=== PATIENT | male | born 1930 | race Caucasian/White ===

== ENCOUNTER 2017-08-30 19:07 | Inpatient (IN) | payer MEDICARE ==
[~2017-08-30] VITALS: Ht 180.3 cm; Wt 136.8 kg
--- NOTE | ~2017-08-30 | EC ---
PATIENT:GEORGI CROUCH DATE OF SERVICE: 09/01/17 SEX: M MEDICAL RECORD: [id number] DATE OF : 30 LOCATION:[facility] [place] AGE OF PATIENT: 86 ADMISSION DATE: 09/01/17 REFERRING PHYSICIAN: INTERPRETING PHYSICIAN: HAZEL LOVE MD ECHOCARDIOGRAM REPORT ECHO CHARGES 4 ECHO COMPLETE CLINICAL DIAGNOSIS: CHF ECHOCARDIOGRAPHIC MEASUREMENTS (adult normal given) AC root (d.<3.7cm) 3.7 cm LV Septum d (<1.2 cm> 1.4 cm Valve Excursion 2.6 cm LV Septum (systole) 1.8 cm Left Atria (s.<4.0cm> 5.5 cm LVPW d(<1.2cm) 1.3 cm RV (d.<2.3cm) 3.3 cm LVPW (sytole) 2.0 cm LV diastole(<5.6CM) 5.3 cm MV E-F(>70mm/sec) cm LV systole 3.1 cm LVOT Diameter 2.2 cm MV exc.(>10mm) cm Est.ejection fraction (50-75%) % Pericardial Effusion N DOPPLER: LVIT cm/sec A cm/sec E 143 cm/sec LA cm/sec RVSP 68.0 mmHg LVOT 114 cm/sec AOP1/2T m/s Asc. Ao 160 cm/sec RVOT 81.0 cm/sec RA cm/sec PA 91.0 cm/sec AV Gradient Peak 10.3 mmHg AV Mean 4.5 mmHg AV Area 2.6 cm MV Gradient Peak 8.0 mmHg MV Mean 2.5 mmHg MV Area cm COMMENTS: Crab Meat Processor: Mak FRANCIS DALLAS Learning And Development Administrator: 4 Dr. Love TAPE# PACS DATE OF SERVICE: 09/01/2017 PROCEDURE: Transthoracic echocardiogram. FINDINGS: 1. Left ventricle shows evidence of left ventricular hypertrophy with inflow characteristics. They were unable to be measured because of atrial fibrillation. 2. The left ventricle was difficult to visualize throughout the study and contrast may be very helpful here, but overall it appears that the left ECHOCARDIOGRAM REPORT [id number] GEORGI CROUCH ventricular function is normal to hyperdynamic, ejection fraction 55% to 60%. 3. The right ventricle is dilated, also with good function. 4. There is moderate mitral regurgitation and moderate tricuspid regurgitation. The RVSP is elevated significantly at 70 mmHg indicating moderate severe pulmonary hypertension. 5. The right and left atrium were severely dilated. 6. The pericardium is normal. CONCLUSIONS: This is difficult to visualize echocardiogram with what appears to be left ventricular hypertrophy and hyperdynamic left ventricular and right ventricular function, both of which show mild dilatation. There is severe dilatation of the biatrial structures and severe pulmonary hypertension. In the proper clinical context, it may indicate pulmonary embolism versus right heart failure secondary to left heart failure with diastolic dysfunction. TRANSINT:[id number] Voice Confirmation ID: [id number] DOCUMENT ID: [id number] HAZEL LOVE MD at 0755 CC: [id number] DICTATION DATE: 09/01/17 1625 SALES REPRESENTATIVE CHURCH FURNITURE: 09/01/17 1805 ADM IN [facility] [address] [place] [id number]
--- NOTE | ~2017-08-30 | EC ---
PATIENT:GEORGI CROUCH DATE OF SERVICE: 09/01/17 SEX: M MEDICAL RECORD: [id number] DATE OF : 30 LOCATION:D.M2 D.211 AGE OF PATIENT: 86 ADMISSION DATE: 09/01/17 REFERRING PHYSICIAN: INTERPRETING PHYSICIAN: HAZEL LOVE MD ECHOCARDIOGRAM REPORT ECHO CHARGES 5 ECHO LIMITED Date: 1 DOPPLER ECHO COLOR FLOW 2 DOPPLER ECHO PULSE CLINICAL DIAGNOSIS: S/P DIURESIS ECHOCARDIOGRAPHIC MEASUREMENTS (adult normal given) AC root (d.<3.7cm) 0 cm LV Septum d (<1.2 cm> 0 cm Valve Excursion 0 cm LV Septum (systole) 0 cm Left Atria (s.<4.0cm> 0 cm LVPW d(<1.2cm) 0 cm RV (d.<2.3cm) 0 cm LVPW (sytole) 0 cm LV diastole(<5.6CM) 0 cm MV E-F(>70mm/sec) 0 cm LV systole 0 cm LVOT Diameter 0 cm MV exc.(>10mm) 0 cm Est.ejection fraction (50-75%) 0 % DOPPLER: LVIT 0 cm/sec A 0 cm/sec E 0 cm/sec LA 0 cm/sec RVSP 67.0 mmHg LVOT 0 cm/sec AOP1/2T 0 m/s Asc. Ao 0 cm/sec RVOT 0 cm/sec RA 0 cm/sec PA 0 cm/sec AV Gradient Peak 0 mmHg AV Mean 0 mmHg AV Area 0 cm MV Gradient Peak 0 mmHg MV Mean 0 mmHg MV Area 0 cm COMMENTS: LIMITED STUDY (2-D,COLOR,DOPPLER) COMPLET ECHO DONE ON 09/01/17 Private Inquiry Agent: Mak BASURTOOE Back Roll Lathe Operator: Lina Love TAPE# PACS Pericardial Effusion N DATE OF SERVICE: 09/05/2017 Limited Doppler interrogation on 2D imaging. FINDINGS: The patient's ejection fraction was normal. The RVSP on this study in the face of moderate tricuspid regurgitation appears to have decreased and is in the 40-50 mmHg range. CONCLUSION: The patient has had a vyms-jc-qshsvwdj decrease in RVSP compared to previous study of last week. ECHOCARDIOGRAM REPORT [id number] GEORGI CROUCH TRANSINT:[id number] Voice Confirmation ID: [id number] DOCUMENT ID: [id number] 09/09/2017 Edited to correct date of service, dmaby. HAZEL LOVE MD at 1426 CC: [id number] DICTATION DATE: 09/06/17 07 ASSIGNMENT DESK ASSISTANT: 09/06/17 1036 DIS IN 09/13/17 [place] [id number] [place] [id number]
--- NOTE | ~2017-08-30 | CN ---
PATIENT NAME:GEORGI CROUCH MEDICAL RECORD: [id number] : 30 LOCATION:D.MS Ling2204 ADMIT DATE: 09/01/17 ACCOUNT: [id number] CONSULTING PHYSICIAN: KALPANA DAVENPORT MD REFERRING PHYSICIAN: GM RODRIGUEZ MD DATE OF CONSULTATION: 09/01/2017 CONSULT REQUESTING PHYSICIAN: Dr. Gm Rodriguez REASON FOR CONSULTATION: Questionable pneumonia, abnormal chest x-ray. HISTORY OF PRESENT ILLNESS: Mr. Crouch is an 86-year-old gentleman who now is very sleepy and lethargic. The history was taken by talking with the patient's daughter as well as reviewing the patient's note. The patient was brought in yesterday from the [facility] for mental status changes. The workup in the ER showed that he has elevated proBNP, abnormal chest radiograph. The CT scan was negative for any acute process. The daughter is not aware if the patient had any pulmonary fibrosis in the past. PAST MEDICAL HISTORY: 1. Congestive heart failure. 2. Ankle injury and fracture almost 60 years ago. REVIEW OF SYSTEMS: Detail is not obtainable. ALLERGIES: HE IS ALLERGIC TO PENICILLIN. MEDICATIONS: Include, doxycycline IV and Lasix 40 mg p.o. PERSONAL AND SOCIAL HISTORY: The patient is and lives with his . FAMILY HISTORY: Noncontributory. PHYSICAL EXAMINATION: GENERAL: Now, the patient is very sleepy. VITAL SIGNS: The blood pressure is 134/74, pulse is 62, respiration is 20, temperature is 98.2, and SpO2 97% on 4 liters nasal cannula. HEENT: Conjunctivae are pink. Sclerae nonicteric. NECK: Supple. There is elevated JVD. CHEST: There are bilateral crackles. No wheezing. HEART: Rhythm regular, normal sound, no murmur. ABDOMEN: Soft, bowel sounds present. No hepatosplenomegaly. RECTAL: Deferred. EXTREMITIES: There is 2+ pedal edema on the right. CENTRAL NERVOUS SYSTEM: The patient is very sleepy. There is no obvious cranial nerve abnormality. LABORATORY DATA: CBC: WBC 8.1, hemoglobin 9.9, hematocrit 34.6, and platelet count 161. Chemistry: Sodium 141, potassium 3.7, BUN is 17, creatinine 0.8. D-dimer is pending. IMPRESSION: 1. Acute hypoxic respiratory failure secondary to pulmonary edema. CONSULT REPORT [id number] GEORGI CROUCH 2. Pulmonary edema. I will doubt pneumonia. 3. Congestive heart failure. 4. Elevated proBNP. 5. Acute mental status changes, possible metabolic encephalopathy and pain medication. 6. Swelling of the right upper extremity and the right lower extremity, rule out deep venous thrombosis. RECOMMENDATIONS: 1. I will check the ultrasound of the upper extremity. The D-dimer is pending, but if that is positive, to check the ultrasound of the lower extremities. 2. Discontinue p.o. Lasix. We will change him to IV. 3. Follow up labs and chest radiographs on a daily basis and continue empiric doxycycline. Dr. Rodriguez thank you for involving me in the care of Mr. Crouch. TRANSINT:[id number] Voice Confirmation ID: [id number] DOCUMENT ID: [id number] KALPANA DAVENPORT MD at 1340 CC: GM RODRIGUEZ MD [id number] DICTATION DATE: 09/01/17 1358 MAXILLOFACIAL PATHOLOGY: 09/02/17 0122 ADM IN [place] [id number] [place] [id number]
--- NOTE | ~2017-08-30 | HEMODYNAMI ---
PATIENT:GEORGI CROUCH MEDICAL RECORD: [id number] : 30 LOCATION:.VT D.2204 ADMISSION DATE: 09/01/17 Generatedon:09/07/20179:07 Patient name: GEORGI CROUCH Patient #: [id number] SSN: : 1930 Date of study: 09/07/2017 Page: Of Hemodynamic Procedure Report Patient Data Patient Demographics Procedure consent was obtained First Name: GEORGI Gender: Male Last Name: MIKO : 1930 [facility] Initial: An Age: 86 year(s) Patient #: [id number] Race: Unknown Additional ID: [id number] Contact details Address: [address] [place] [address] State: [place] City: [place] Zip code: [address] Past Medical History Allergies Allergen Reaction Date Comments Reported Other allergy 09/07/2017 PCN Admission Admission Data Admission Date: 09/01/2017 Admission Time: 14:16 Admit Source: Other Room #: D.2204 Procedure Procedure Types Cath Procedure Diagnostic Procedure PPM/ICD PPM Ventricular Implant Sedation Charges Moderate Sedation up to 30 minutes Procedure Description Procedure Date Procedure Date: 09/07/2017 Procedure Start Time: 8:35 Procedure Staff Name Function Ted Avalos MD Performing Physician Maurizio Acevedo RT Monitor José Miguel Scanlon RT Scrub Jae Courtney RN Nurse Procedure Data Cath Procedure Fluoroscopy Diagnostic fluoroscopy Total fluoroscopy Time: 2.1 time: 2.1 min min Diagnostic fluoroscopy Total fluoroscopy dose: dose: 89.74 mGy 89.74 mGy Contrast Material Contrast Material Type Amount (ml) Visipaque 270 20 Estimated blood loss: 5 ml Procedure Complications No complications Procedure Medications Medication Administration Route Dosage Oxygen NC 2 l/min Lidocaine 1% added to field 20 Heparin Flush Bag added to field 1 bags (1000units/500ml NS) Ancef (1Gm/50ml NS) I.V.P.B 1 g Versed I.V. 1 mg Fentanyl I.V. 25 mcg Hemodynamics Rest Heart Rate: 59 (bpm) Snapshots Pre Cath Intra NCS Post Cath Vital Signs Time Heart Resp SPO2 etCO2 NIBP (mmHg) Rhythm Pain Sedation Rate (ipm) (%) (mmHg) Status Level (bpm) 8:25:47 56 34 97 0 144/71(100) NSR 0 (11) 10(A) , No pain 8:30:23 54 19 97 0 141/75(113) NSR 0 (11) 10(A) , No pain 8:36:03 56 14 95 0 141/71(109) NSR 0 (11) 10(A) , No pain 8:40:21 60 39 94 0 136/87(103) NSR 0 (11) 10(A) , No pain 8:44:50 54 29 96 0 138/75(107) NSR 0 (11) 9(A) , No pain 8:49:18 59 19 96 0 140/73(101) NSR 0 (11) 9(A) , No pain 8:53:46 50 18 97 0 136/70(111) NSR 0 (11) 9(A) , No pain 8:58:17 63 19 97 0 134/66(116) NSR 0 (11) 9(A) , No pain 9:02:47 64 15 97 0 133/71(115) NSR 0 (11) 10(A) , No pain Medications Time Medication Route Dose Verified Delivered Reason Notes Effe ctiveness by by 8:24:16 Ancef (1Gm/50ml I.V.P.B 1 g Ted Buffie Per NS) Bailey Courtney RN physician 8:25:06 Lidocaine 1% added 20ml Ted Ted for local to vial Bailey Avalos MD anesthetic field x2 MD 8:25:24 Heparin Flush added 1 Ted Ted used for Bag to bags Bailey Avalos MD procedure (1000units/500ml field ALICEA NS) 8:25:55 Oxygen NC 2 Ted Buffie used for l/min Bailey Courtney RN procedure 8:27:26 Versed I.V. 1 mg Ted Buffie for Bailey Courtney RN sedation 8:42:32 Fentanyl I.V. 25 Ted Buffie for mcg Bailey Courtney RN sedation Procedure Log Time Note 7:58:20 Informed consent obtained and on chart 7:58:23 Admit Source: Other 7:58:39 Buffie Courtney RN sent for patient. Start room use. 7:58:40 Time tracking: Regular hours 7:58:42 Plan of Care:Hemodynamics will remain stable., Cardiac rhythm will remain stable., Comfort level will be maintained., Respiratory function will remain adequate., Patient/ family verbilizes understanding of procedure., Procedure tolerated without complication., Recovers from procedure without complications.. 8:14:52 Patient received from Med/Surg to CCL 3 Alert and oriented. Tansferred to table in Supine position. 8:14:53 Warm blankets applied, and lilian hugger turned on for patient comfort. 8:14:53 Correct patient and procedure confirmed by team. 8:14:55 ECG and BP/O2 sat monitors applied to patient. 8:22:51 Vital chart was started 8:23:21 Rhythm: atrial fibrillation 8:23:26 Full Disclosure recording started 8:24:08 H&P Date Dictated: 09/01/2017 Within 30 days and on chart.. 8:24:10 Pre-procedure instructions explained to patient. 8:24:11 Pre-op teaching completed and patient verbalized understanding. 8:24:16 Ancef (1Gm/50ml NS) 1 g I.V.P.B was administered by Jae Courtney RN; Per physician; 8:24:22 Family in waiting room. 8:24:23 Patient NPO since Midnight. 8:24:31 Patient allergic to Other allergyPCN 8:24:54 Is the patient allergic to Iodine/contrast media? No. 8:24:59 Is patient on blood thinner?No 8:25:01 Patient diabetic? No. 8:25:03 Previous problem with sedation/anesthesia? No ? 8:25:04 Snore? Yes 8:25:05 Sleep apnea? No 8:25:06 Lidocaine 1% 20ml vial x2 added to field was administered by Ted Avalos MD; for local anesthetic; 8:25:06 Deviated septum? No 8:25:07 Opens mouth fully? Yes 8:25:07 Sticks out tongue? Yes 8:25:14 CHF 8:25:17 Airway obstruction? No ? 8:25:19 Dentures? No ? 8:25:22 Patient pain scale 0/10 ?. 8:25:24 Heparin Flush Bag (1000units/500ml NS) 1 bags added to field was administered by Ted Avalos MD; used for procedure; 8:25:39 IV patent on arrival in left hand, left forearm with 0.9% NaCl at KVO. 8::41 Lab results completed and on chart. 8::42 Lab results completed and on chart. 8:25:46 Left chest area was prepped with chlora-prep and draped in sterile fashion 8:25:55 Oxygen 2 l/min NC was administered by Jae Courtney RN; used for procedure; 8::57 Medtronic bottling equipment sales representative luis shaffer present for procedure. 8:26:31 Alarms reviewed by R. N. 8::32 Sharps counted by scrub and verified by R.N. 8::42 Grounding pad site Right thigh. 8::43 Grounding pad site free from injury. 8::48 Physician arrived 8::48 --------ALL STOP TIME OUT------ 8::48 Final Timeout: patient, procedure, and site verified with staff and physician. All members of the team are in agreement. 8:26:53 Left chest site verified by team. 8::57 Physical assessment completed. ASA score P 3 - A patient with severe systemic disease as per Ted Avalos MD. 8:27:04 Sedation plan: IV Moderate Sedation Medication:Versed, Fentanyl 8:27:26 Versed 1 mg I.V. was administered by Jae Courtney RN; for sedation; 8:33:41 Baseline sample Acquired. 8:34:00 Use device set NORRED PPM 8:34:05 MICROPUNCTURE 4FR Cook ([id number]) opened to sterile field. 8:34:07 Tegaderm 4 x 4 (1626W) opened to sterile field. 8:34:07 Stapler Skin 35W Proximate Plus (PMW35) opened to sterile field. 8:34:10 Cautery Tip Rn Mobile opened to sterile field. 8:34:10 Cautery Pushbutton Pencil opened to sterile field. 8:34:12 Immobilizer Extra Large opened to sterile field. 8:34:12 2-0 Silk 685H opened to sterile field. 8:34:13 2-0 Vicryl Plus [id number] opened to sterile field. 8:34:27 Pre sharps counted by scrub and verified by RN: Sutures: 2; Sponges: 5; Stick needles: 2; Skin needles: 2; Blade: 1; Cautery: 1 8:35:03 Lidocaine 1% was administered to left subclavicular area by Ted Avalos MD . 8:37:36 STOPCOCK 3-Way Large Bore ([id number]) opened to sterile field. 8:39:58 Incision made to left subclavicular area. 8:39:59 Generator pocket made/opened. 8:41:52 Advisa SR MRI (A3SR01) opened to sterile field. 8:42:32 Fentanyl 25 mcg I.V. was administered by Jae Courtney RN; for sedation; 8:42:40 Medtronic 4074-52 PPM Lead opened to sterile field. 8:46:54 Access obtained with 4Fr micropunture. 8:46:58 Left subclavian vein accessed with 7Fr Peel Away Sheath. 8:47:33 Ventricular lead inserted and advanced. 8:48:26 Ventricular lead positioned. 8:49:16 Ventricular lead tested. 8:51:55 Peel-a-way sheath was split and removed. 8:52:19 Ventricular lead attachment was completed with 2-0 silk. 8:52:22 PPM Single was attached to lead(s) and inserted into pocket. 8:53:13 Subcutaneous closure was completed with 3-0 vicryl. 8:55:12 Parameters-- Generator: Mode: DDIR\. Lower Rate: 60bpm. Upper Rate: 120bpm. 8:55:34 Parameters--Ventricular P/R Wave: 5.5mV. Current: 0.4mA; Threshold: 0.4V; Impedence: 1118OHMS. 8:55:39 Skin closure was completed with 35mm Guadalupe. 9:00:24 Procedure ended.(Physican Out) 9:01:38 Fluoroscopy time 02.10 minutes. 9:01:45 Fluoroscopy dose: 89.74 mGy 9:01:45 Flurop Dose total: 89.74 9:01:51 Contrast amount:Visipaque 270 20ml. 9:02:09 Post sharps counted by scrub and verified by RN: Sutures: 2; Sponges: 5; Stick needles: 2; Skin needles: 2; Blade: 1; Cautery: 1 9:02:18 Insertion/operative site no bleeding no hematoma. 9:02:25 Post-op/insertion site Left Subclavian vein dressed using a gauze eyepad and tegaderm. 9:02:33 Post left subclavian vein:stable, soft, clean and dry 9:02:41 Post-procedure physical assessment completed. ASA score P 3 - A patient with severe systemic disease as per Ted Avalos MD. 9:02:44 Post procedure rhythm: paced 9:02:47 Estimated blood loss: 5 ml 9:02:49 Post procedure instruction explained to patient.Patient verbalizes understanding. 9:02:49 Patient needs reinforcement of post procedure teaching. 9:03:01 Procedure type changed to Cath procedure, Diagnostic procedure, PPM/ICD, PPM Ventricular Implant, Sedation Charges, Moderate Sedation up to 30 minutes 9:03:41 Procedure and supply charges have been captured, reviewed, submitted and are correct. 9:03:43 Procedure Complication : No complications 9:03:55 Vital chart was stopped 9:03:56 See physician's report for complete and final results. 9:03:57 Report given to Pre/Post Procedure Room. 9:03:59 Patient transfered to Pre/Post Procedure Room with Stretcher. 9:04:24 End room use (Document Last) Device Usage Item Name Manufacture Quantity Catalog Hospital Part Current Minimal Lot# / Serial# Number Charge Number Stock Stock Code MICROPUNCTURE [facility] 1 [id number] [id number] 5 4FR [employer] Biorepositories ([id number]) Tegaderm 4 x 3M 1 1626W 654951 750837 260629 5 4 (1626W) Stapler Skin Unknown 1 PMW35 610579 [id number] [id number] 5 35W Proximate Plus (PMW35) Cautery Tip Microtek 1 [id number] 082664 851894 914286 5 Rn Mobile [employer] Cautery Microtek 1 [id number] 337708 10810 [id number] 5 Pushbutton [employer] Pencil Immobilizer Cardinal 1 [id number] 410424 463952 001284 5 Extra Large Health 2-0 Silk 685H Ethicon 1 685H 345602 79220 428046 5 2-0 Vicryl Ethicon 1 [id number] 412308 355947 614430 5 Plus CAL947 [facility] 1 W32144 889191 7502 283907 5 3-Way Large Bore (B28384) Advisa SR MRI Unknown 1 0 0 (A3SR01) Medtronic Medtronic 1 4074-52 567994 [id number] 5 exp:2019-01-18 4074-52 PPM SN: [id number] Lead Signature Audit [place] Stage Time Signature Unsigned Intra-Procedure 09/07/2017 Maurizio Acevedo 9:07:34 AM RT(R) Signatures Monitor : Maurizio Acevedo RT Signature : Date : Time : [place] [id number] [place] [address]
[2017-08-30 21:23] LABS: BASOPHILS 0.1 % (0-2); EOSINOPHILS 0 % (0-7); HEMATOCRIT 34.6 % (42.0-54.0); HEMOGLOBIN 9.9 g/dL (13.5-17.5); IMMATURE GRANULOCYTES 0.1 % (0-5); LYMPHOCYTES 16.5 % (15-50); MCH 24.8 pg (26.0-34.0); MCHC 28.6 g/dL (31.0-37.0); MCV 86.7 fL (80.0-100.0); MEAN PLATELET VOLUME 9.8 fL (7.4-10.4); MONOCYTES 14.5 % (2-11); NEUTROPHILS 68.8 % (40-80); PLATELET COUNT 161 10x3/uL (130-400); RBC 3.99 10x6/uL (4.20-6.10); RDW 17.4 % (11.5-14.5); WBC 8.1 10x3/uL (4.8-10.8)
[2017-08-30 21:50] LABS: ALBUMIN 2.6 g/dL (3.4-5.0); ALKALINE PHOSPHATASE 167 U/L (46-116); ALT (SGPT) 61 U/L (10-68); BILIRUBIN - TOTAL 0.42 mg/dL (0.2-1.3); CALC OSMOLALITY 288 mosm/kg (275-300); CALCIUM 8.9 mg/dL (8.5-10.1); CHLORIDE - SERUM 103 mmol/L (98-107); CREATINE KINASE 16 UL (21-232); GLUCOSE 100 mg/dL (74-106); LIPASE 85 U/L (73-393); POTASSIUM - SERUM 3.6 mmol/L (3.5-5.1); PRO BNP 941 pg/mL (0-450); PROTEIN - SERUM 6.2 g/dL (6.4-8.2); SODIUM 144 mmol/L (136-145); TROPONIN-I 0.024 ng/mL (0.000-0.060); UREA NITROGEN 18 mg/dL (7-18); eGFR NON AFRICAN AMERICAN 75 mL/min (90-120)
[2017-08-31 05:38] LABS: APPEARANCE CLEAR (CLEAR); BILIRUBIN NEGATIVE (NEGATIVE); COLOR YELLOW (YELLOW); GLUCOSE NEGATIVE (NEGATIVE); KETONE NEGATIVE (NEGATIVE); NITRITE NEGATIVE (NEGATIVE); PROTEIN TRACE mg/dL (NEGATIVE); UROBILINOGEN NORMAL (NORMAL)
[2017-08-31 05:39] LABS: BACTERIA FEW /hpf (NONE SEEN); EPITHELIAL CELLS 0-5 /hpf (0-5); RED CELLS - URINE 0-5 /hpf (0-5); WHITE CELLS - URINE 0-5 /hpf (0-5)
[2017-08-31 20:00] VITALS: BP 137/67
[2017-09-01] VITALS (7 sets, daily range): BP systolic 112–147; BP diastolic 63–75; BMI 39.3
[2017-09-01] MEDS ORDERED: CORDARONE200 MG PO (04:36)
[2017-09-01] MEDS ORDERED: ASPIRIN EC81 M1 PO (04:37)
[2017-09-01] MEDS ORDERED: COLACE100 MG PO (04:37)
[2017-09-01] MEDS ORDERED: DULCOLAX10 MG/SUPP RC (04:38)
[2017-09-01] MEDS ORDERED: FLOMAX0.4 MG PO (04:39)
[2017-09-01] MEDS ORDERED: ELIQUIS2.5 MG PO (04:39)
[2017-09-01] MEDS ORDERED: LASIX40 MG PO (04:40)
[2017-09-01] MEDS ORDERED: LEVAQUIN750 MG PO (04:41)
[2017-09-01] MEDS ORDERED: LIPITOR40 MG PO (04:41)
[2017-09-01] MEDS ORDERED: MILK OF MAGNESI30 ML PO (04:42)
[2017-09-01] MEDS ORDERED: ULTRAM50 MG PO (04:43)
[2017-09-01] MEDS ORDERED: BUPROPION XL300 MG PO (04:44)
[2017-09-01] MEDS ORDERED: ZOFRAN4 MG PO (04:45)
[2017-09-01 05:09] LABS: BASOPHILS 0.2 % (0-2); EOSINOPHILS 0 % (0-7); HEMATOCRIT 34.4 % (42.0-54.0); HEMOGLOBIN 9.6 g/dL (13.5-17.5); IMMATURE GRANULOCYTES 0.1 % (0-5); LYMPHOCYTES 15.9 % (15-50); MCH 24.3 pg (26.0-34.0); MCHC 27.9 g/dL (31.0-37.0); MCV 87.1 fL (80.0-100.0); MEAN PLATELET VOLUME 9.9 fL (7.4-10.4); MONOCYTES 12.5 % (2-11); NEUTROPHILS 71.3 % (40-80); PLATELET COUNT 172 10x3/uL (130-400); RBC 3.95 10x6/uL (4.20-6.10); RDW 17.2 % (11.5-14.5); WBC 9.3 10x3/uL (4.8-10.8)
[2017-09-01 05:48] LABS: ALBUMIN 2.3 g/dL (3.4-5.0); ALKALINE PHOSPHATASE 167 U/L (46-116); ALT (SGPT) 71 U/L (10-68); CALC OSMOLALITY 282 mosm/kg (275-300); CALCIUM 9.1 mg/dL (8.5-10.1); CARBON DIOXIDE 35.6 mmol/L (21.0-32.0); CHLORIDE - SERUM 101 mmol/L (98-107); CREATININE - SERUM 0.8 mg/dL (0.6-1.3); GLUCOSE 105 mg/dL (74-106); POTASSIUM - SERUM 3.7 mmol/L (3.5-5.1); PROTEIN - SERUM 6.3 g/dL (6.4-8.2); SODIUM 141 mmol/L (136-145); UREA NITROGEN 17 mg/dL (7-18); eGFR NON AFRICAN AMERICAN > 90 mL/min (90-120)
[2017-09-02] VITALS (9 sets, daily range): BP systolic 116–151; BP diastolic 55–80; BMI 26.2
[2017-09-02 05:57] LABS: BASOPHILS 0.1 % (0-2); EOSINOPHILS 0.9 % (0-7); HEMOGLOBIN 9.3 g/dL (13.5-17.5); IMMATURE GRANULOCYTES 0.2 % (0-5); LYMPHOCYTES 12.9 % (15-50); MCH 24.3 pg (26.0-34.0); MCHC 28.2 g/dL (31.0-37.0); MCV 86.4 fL (80.0-100.0); MEAN PLATELET VOLUME 10.2 fL (7.4-10.4); MONOCYTES 11.9 % (2-11); PLATELET COUNT 152 10x3/uL (130-400); RBC 3.82 10x6/uL (4.20-6.10); WBC 8.1 10x3/uL (4.8-10.8)
[2017-09-02 06:07] LABS: ALBUMIN 2.1 g/dL (3.4-5.0); ALKALINE PHOSPHATASE 155 U/L (46-116); ALT (SGPT) 57 U/L (10-68); CALC OSMOLALITY 273 mosm/kg (275-300); CALCIUM 8.7 mg/dL (8.5-10.1); CARBON DIOXIDE 37.4 mmol/L (21.0-32.0); CHLORIDE - SERUM 99 mmol/L (98-107); CREATININE - SERUM 0.8 mg/dL (0.6-1.3); GLUCOSE 93 mg/dL (74-106); POTASSIUM - SERUM 3.3 mmol/L (3.5-5.1); SODIUM 136 mmol/L (136-145); UREA NITROGEN 19 mg/dL (7-18); eGFR NON AFRICAN AMERICAN > 90 mL/min (90-120)
[2017-09-03 04:00] VITALS: BP 149/67
[2017-09-03 05:25] LABS: BASOPHILS 0 % (0-2); EOSINOPHILS 0.9 % (0-7); HEMATOCRIT 33.7 % (42.0-54.0); HEMOGLOBIN 9.7 g/dL (13.5-17.5); IMMATURE GRANULOCYTES 0.1 % (0-5); LYMPHOCYTES 14.4 % (15-50); MCH 24.6 pg (26.0-34.0); MCHC 28.8 g/dL (31.0-37.0); MCV 85.5 fL (80.0-100.0); MONOCYTES 14.5 % (2-11); NEUTROPHILS 70.1 % (40-80); PLATELET COUNT 157 10x3/uL (130-400); RBC 3.94 10x6/uL (4.20-6.10); RDW 17.2 % (11.5-14.5)
[2017-09-03 05:48] LABS: ALBUMIN 2.2 g/dL (3.4-5.0); ALKALINE PHOSPHATASE 182 U/L (46-116); ALT (SGPT) 57 U/L (10-68); BILIRUBIN - TOTAL 0.47 mg/dL (0.2-1.3); CALC OSMOLALITY 281 mosm/kg (275-300); CARBON DIOXIDE 39.6 mmol/L (21.0-32.0); CHLORIDE - SERUM 100 mmol/L (98-107); CREATININE - SERUM 0.7 mg/dL (0.6-1.3); GLUCOSE 89 mg/dL (74-106); PROTEIN - SERUM 6.3 g/dL (6.4-8.2); SODIUM 141 mmol/L (136-145); UREA NITROGEN 18 mg/dL (7-18); eGFR NON AFRICAN AMERICAN > 90 mL/min (90-120)
[2017-09-03 08:04] VITALS: BP 129/66
[2017-09-03 12:14] VITALS: BP 120/66
[2017-09-03 16:16] VITALS: BP 123/51
[2017-09-03 20:00] VITALS: BP 131/61
[2017-09-03 23:30] VITALS: BP 138/65
[2017-09-04 04:00] VITALS: BP 131/67
[2017-09-04 05:09] LABS: BASOPHILS 0.1 % (0-2); EOSINOPHILS 1.3 % (0-7); HEMATOCRIT 32.8 % (42.0-54.0); HEMOGLOBIN 9.5 g/dL (13.5-17.5); IMMATURE GRANULOCYTES 0.3 % (0-5); LYMPHOCYTES 15.6 % (15-50); MCH 24.6 pg (26.0-34.0); MEAN PLATELET VOLUME 10.5 fL (7.4-10.4); MONOCYTES 13.9 % (2-11); NEUTROPHILS 68.8 % (40-80); PLATELET COUNT 167 10x3/uL (130-400); RBC 3.86 10x6/uL (4.20-6.10); RDW 17.3 % (11.5-14.5); WBC 7.9 10x3/uL (4.8-10.8)
[2017-09-04 05:12] LABS: ALBUMIN 2.1 g/dL (3.4-5.0); ALKALINE PHOSPHATASE 170 U/L (46-116); ALT (SGPT) 56 U/L (10-68); CALC OSMOLALITY 283 mosm/kg (275-300); CALCIUM 8.8 mg/dL (8.5-10.1); CHLORIDE - SERUM 100 mmol/L (98-107); CREATININE - SERUM 0.6 mg/dL (0.6-1.3); GLUCOSE 78 mg/dL (74-106); POTASSIUM - SERUM 4.3 mmol/L (3.5-5.1); PROTEIN - SERUM 6.3 g/dL (6.4-8.2); SODIUM 142 mmol/L (136-145); UREA NITROGEN 19 mg/dL (7-18); eGFR NON AFRICAN AMERICAN > 90 mL/min (90-120)
[2017-09-04 10:56] VITALS: BP 148/61
[2017-09-04 14:50] VITALS: Ht 180.3 cm; Wt 136.8 kg
[2017-09-04 15:03] VITALS: BP 130/59
[2017-09-04 16:52] VITALS: BP 128/70
[2017-09-04 20:00] VITALS: BP 133/57
[2017-09-05] VITALS: BP 102/62
[2017-09-05 04:00] VITALS: BP 164/60
[2017-09-05 06:15] LABS: BASOPHILS 0.1 % (0-2); EOSINOPHILS 1.1 % (0-7); HEMOGLOBIN 9.3 g/dL (13.5-17.5); IMMATURE GRANULOCYTES 0.1 % (0-5); LYMPHOCYTES 13.5 % (15-50); MCH 23.5 pg (26.0-34.0); MCHC 27.4 g/dL (31.0-37.0); MCV 85.9 fL (80.0-100.0); MONOCYTES 10.6 % (2-11); NEUTROPHILS 74.6 % (40-80); PLATELET COUNT 176 10x3/uL (130-400); RBC 3.96 10x6/uL (4.20-6.10); RDW 17.2 % (11.5-14.5); WBC 7.5 10x3/uL (4.8-10.8)
[2017-09-05 06:59] LABS: ALBUMIN 2.2 g/dL (3.4-5.0); ALKALINE PHOSPHATASE 192 U/L (46-116); ALT (SGPT) 53 U/L (10-68); BILIRUBIN - TOTAL 0.45 mg/dL (0.2-1.3); CALC OSMOLALITY 284 mosm/kg (275-300); CALCIUM 9.2 mg/dL (8.5-10.1); CHLORIDE - SERUM 100 mmol/L (98-107); CREATININE - SERUM 0.7 mg/dL (0.6-1.3); GLUCOSE 89 mg/dL (74-106); PROTEIN - SERUM 6.4 g/dL (6.4-8.2); SODIUM 142 mmol/L (136-145); UREA NITROGEN 21 mg/dL (7-18); eGFR NON AFRICAN AMERICAN > 90 mL/min (90-120)
[2017-09-05 07:01] LABS: POTASSIUM - SERUM 3.6 mmol/L (3.5-5.1)
[2017-09-05 07:03] LABS: CARBON DIOXIDE 40.2 mmol/L (21.0-32.0)
[2017-09-05 08:07] VITALS: BP 140/66
[2017-09-05 11:57] VITALS: BP 134/62
[2017-09-05 15:29] VITALS: BP 117/63
[2017-09-05 20:55] VITALS: BP 116/60
[2017-09-06 05:40] VITALS: BP 133/63
[2017-09-06 06:22] LABS: BASOPHILS 0.3 % (0-2); HEMATOCRIT 33.2 % (42.0-54.0); HEMOGLOBIN 9.4 g/dL (13.5-17.5); IMMATURE GRANULOCYTES 0.1 % (0-5); LYMPHOCYTES 11.6 % (15-50); MCH 24.2 pg (26.0-34.0); MCHC 28.3 g/dL (31.0-37.0); MCV 85.3 fL (80.0-100.0); MEAN PLATELET VOLUME 9.7 fL (7.4-10.4); MONOCYTES 9.5 % (2-11); NEUTROPHILS 76.5 % (40-80); PLATELET COUNT 163 10x3/uL (130-400); RBC 3.89 10x6/uL (4.20-6.10); RDW 17.1 % (11.5-14.5); WBC 7.5 10x3/uL (4.8-10.8)
[2017-09-06 06:55] LABS: ALBUMIN 2.1 g/dL (3.4-5.0); ALKALINE PHOSPHATASE 179 U/L (46-116); ALT (SGPT) 48 U/L (10-68); CALC OSMOLALITY 283 mosm/kg (275-300); CALCIUM 9.1 mg/dL (8.5-10.1); CARBON DIOXIDE 39.4 mmol/L (21.0-32.0); CHLORIDE - SERUM 101 mmol/L (98-107); CREATININE - SERUM 0.7 mg/dL (0.6-1.3); GLUCOSE 87 mg/dL (74-106); POTASSIUM - SERUM 3.2 mmol/L (3.5-5.1); PROTEIN - SERUM 6.1 g/dL (6.4-8.2); SODIUM 142 mmol/L (136-145); UREA NITROGEN 19 mg/dL (7-18); eGFR NON AFRICAN AMERICAN > 90 mL/min (90-120)
[2017-09-06 09:39] VITALS: BP 128/52
[2017-09-06 13:56] VITALS: BP 111/54
[2017-09-06 20:00] VITALS: BP 123/59
[2017-09-07 04:00] VITALS: BP 128/61
[2017-09-07 05:31] LABS: BASOPHILS 0.2 % (0-2); EOSINOPHILS 0.6 % (0-7); HEMATOCRIT 34.1 % (42.0-54.0); HEMOGLOBIN 9.6 g/dL (13.5-17.5); IMMATURE GRANULOCYTES 0.2 % (0-5); LYMPHOCYTES 14.1 % (15-50); MCH 24.1 pg (26.0-34.0); MCHC 28.2 g/dL (31.0-37.0); MCV 85.5 fL (80.0-100.0); MEAN PLATELET VOLUME 9.7 fL (7.4-10.4); MONOCYTES 11.1 % (2-11); NEUTROPHILS 73.8 % (40-80); PLATELET COUNT 179 10x3/uL (130-400); RBC 3.99 10x6/uL (4.20-6.10); WBC 6.7 10x3/uL (4.8-10.8)
[2017-09-07 05:46] LABS: ALBUMIN 2.2 g/dL (3.4-5.0); ALKALINE PHOSPHATASE 208 U/L (46-116); ALT (SGPT) 48 U/L (10-68); BILIRUBIN - TOTAL 0.46 mg/dL (0.2-1.3); CALC OSMOLALITY 288 mosm/kg (275-300); CALCIUM 9.2 mg/dL (8.5-10.1); CARBON DIOXIDE 36.6 mmol/L (21.0-32.0); CHLORIDE - SERUM 103 mmol/L (98-107); CREATININE - SERUM 0.8 mg/dL (0.6-1.3); GLUCOSE 86 mg/dL (74-106); MAGNESIUM - SERUM 1.7 mg/dL (1.8-2.4); POTASSIUM - SERUM 3.5 mmol/L (3.5-5.1); PROTEIN - SERUM 6.3 g/dL (6.4-8.2); SODIUM 144 mmol/L (136-145); UREA NITROGEN 21 mg/dL (7-18); eGFR NON AFRICAN AMERICAN > 90 mL/min (90-120)
[2017-09-07 08:28] VITALS: BP 122/59
[2017-09-07 15:24] VITALS: BP 164/78
[2017-09-07 22:10] VITALS: BP 138/69
[2017-09-08 01:26] VITALS: BP 105/55
[2017-09-08 05:21] LABS: BASOPHILS 0.1 % (0-2); EOSINOPHILS 0.7 % (0-7); HEMATOCRIT 36.1 % (42.0-54.0); HEMOGLOBIN 10.5 g/dL (13.5-17.5); IMMATURE GRANULOCYTES 0.1 % (0-5); LYMPHOCYTES 18.2 % (15-50); MCH 24.2 pg (26.0-34.0); MCHC 29.1 g/dL (31.0-37.0); MEAN PLATELET VOLUME 10.2 fL (7.4-10.4); MONOCYTES 10.7 % (2-11); NEUTROPHILS 70.2 % (40-80); PLATELET COUNT 214 10x3/uL (130-400); RBC 4.33 10x6/uL (4.20-6.10); RDW 16.9 % (11.5-14.5); WBC 8.2 10x3/uL (4.8-10.8)
[2017-09-08 05:25] LABS: MCV 83.4 fL (80.0-100.0)
[2017-09-08 05:46] LABS: ALBUMIN 2.1 g/dL (3.4-5.0); ALKALINE PHOSPHATASE 214 U/L (46-116); ALT (SGPT) 44 U/L (10-68); BILIRUBIN - TOTAL 0.52 mg/dL (0.2-1.3); CALC OSMOLALITY 288 mosm/kg (275-300); CALCIUM 8.9 mg/dL (8.5-10.1); CARBON DIOXIDE 35.6 mmol/L (21.0-32.0); CHLORIDE - SERUM 104 mmol/L (98-107); CREATININE - SERUM 0.7 mg/dL (0.6-1.3); GLUCOSE 80 mg/dL (74-106); PROTEIN - SERUM 6.2 g/dL (6.4-8.2); SODIUM 144 mmol/L (136-145); UREA NITROGEN 20 mg/dL (7-18); eGFR NON AFRICAN AMERICAN > 90 mL/min (90-120)
[2017-09-08 06:34] VITALS: BP 103/62
[2017-09-08 20:00] VITALS: BP 108/48
[2017-09-09] VITALS (8 sets, daily range): BP systolic 84–107; BP diastolic 44–66
[2017-09-09 05:43] LABS: BASOPHILS 0.1 % (0-2); EOSINOPHILS 0.8 % (0-7); HEMATOCRIT 35.4 % (42.0-54.0); HEMOGLOBIN 10.2 g/dL (13.5-17.5); LYMPHOCYTES 19.2 % (15-50); MCH 24.1 pg (26.0-34.0); MCHC 28.8 g/dL (31.0-37.0); MCV 83.5 fL (80.0-100.0); MEAN PLATELET VOLUME 10.1 fL (7.4-10.4); MONOCYTES 10.9 % (2-11); PLATELET COUNT 185 10x3/uL (130-400); RBC 4.24 10x6/uL (4.20-6.10); WBC 7.2 10x3/uL (4.8-10.8)
[2017-09-09 06:31] LABS: ALBUMIN 2.1 g/dL (3.4-5.0); ALKALINE PHOSPHATASE 212 U/L (46-116); ALT (SGPT) 42 U/L (10-68); BILIRUBIN - TOTAL 0.44 mg/dL (0.2-1.3); CALCIUM 9.1 mg/dL (8.5-10.1); CARBON DIOXIDE 34.6 mmol/L (21.0-32.0); CHLORIDE - SERUM 107 mmol/L (98-107); GLUCOSE 81 mg/dL (74-106); LDH 158 U/L (85-227); MAGNESIUM - SERUM 1.9 mg/dL (1.8-2.4); PHOSPHOROUS 2.7 mg/dL (2.5-4.9); POTASSIUM - SERUM 3.3 mmol/L (3.5-5.1); PRO BNP 331 pg/mL (0-450); PROTEIN - SERUM 5.9 g/dL (6.4-8.2); SODIUM 145 mmol/L (136-145); eGFR NON AFRICAN AMERICAN 85 mL/min (90-120)
[2017-09-09 06:35] LABS: CALC OSMOLALITY 292 mosm/kg (275-300); CREATININE - SERUM 0.9 mg/dL (0.6-1.3); UREA NITROGEN 27 mg/dL (7-18)
[2017-09-09 07:16] LABS: INR 1.13 (0.85-1.17); PROTIME 14.1 SECONDS (11.6-15.0)
[2017-09-09 07:17] LABS: APTT 32.8 SECONDS (22.8-39.4)
[2017-09-09 13:20] LABS: PROTEIN - BODY FLUID 2.7 G/DL
[2017-09-09 14:38] LABS: EOS BF 1 %; MACROPHAGES BF 44 %; MESOTHELIALS BF 3 %; NEUT - BF 6 %
[2017-09-10 00:55] VITALS: BP 97/47
[2017-09-10 03:57] LABS: BASOPHILS 0.1 % (0-2); EOSINOPHILS 0 % (0-7); HEMATOCRIT 35.2 % (42.0-54.0); HEMOGLOBIN 10.2 g/dL (13.5-17.5); IMMATURE GRANULOCYTES 0.1 % (0-5); LYMPHOCYTES 18.1 % (15-50); MCH 24.6 pg (26.0-34.0); MONOCYTES 9.4 % (2-11); NEUTROPHILS 72.3 % (40-80); PLATELET COUNT 187 10x3/uL (130-400); RBC 4.14 10x6/uL (4.20-6.10); RDW 16.9 % (11.5-14.5); WBC 7.9 10x3/uL (4.8-10.8)
[2017-09-10 04:29] LABS: ALBUMIN 2.1 g/dL (3.4-5.0); ALKALINE PHOSPHATASE 209 U/L (46-116); ALT (SGPT) 44 U/L (10-68); CALC OSMOLALITY 284 mosm/kg (275-300); CARBON DIOXIDE 31.4 mmol/L (21.0-32.0); CHLORIDE - SERUM 105 mmol/L (98-107); CREATININE - SERUM 0.8 mg/dL (0.6-1.3); GLUCOSE 93 mg/dL (74-106); POTASSIUM - SERUM 3.2 mmol/L (3.5-5.1); SODIUM 141 mmol/L (136-145); UREA NITROGEN 25 mg/dL (7-18); eGFR NON AFRICAN AMERICAN > 90 mL/min (90-120)
[2017-09-10 05:48] VITALS: BP 118/56
[2017-09-10 11:33] VITALS: BP 97/52
[2017-09-10 14:19] LABS: FUNGUS STAIN Final report (())
[2017-09-10 16:36] VITALS: BP 91/55
[2017-09-10 17:12] LABS: AFB SPECIMEN PROCESSING Not Indicated (())
[2017-09-10 19:00] VITALS: BP 95/51
[2017-09-11 03:33] VITALS: BP 103/49
[2017-09-11 05:26] LABS: BASOPHILS 0.1 % (0-2); EOSINOPHILS 0.7 % (0-7); HEMATOCRIT 33.1 % (42.0-54.0); HEMOGLOBIN 9.3 g/dL (13.5-17.5); LYMPHOCYTES 19.5 % (15-50); MCH 23.9 pg (26.0-34.0); MCHC 28.1 g/dL (31.0-37.0); MCV 85.1 fL (80.0-100.0); MEAN PLATELET VOLUME 10.1 fL (7.4-10.4); MONOCYTES 10.4 % (2-11); NEUTROPHILS 69.3 % (40-80); PLATELET COUNT 184 10x3/uL (130-400); RBC 3.89 10x6/uL (4.20-6.10)
[2017-09-11 05:37] LABS: CALC OSMOLALITY 285 mosm/kg (275-300); CALCIUM 8.5 mg/dL (8.5-10.1); CARBON DIOXIDE 28.6 mmol/L (21.0-32.0); CHLORIDE - SERUM 108 mmol/L (98-107); CREATININE - SERUM 0.7 mg/dL (0.6-1.3); GLUCOSE 90 mg/dL (74-106); SODIUM 142 mmol/L (136-145); UREA NITROGEN 22 mg/dL (7-18); eGFR NON AFRICAN AMERICAN > 90 mL/min (90-120)
[2017-09-11 05:46] LABS: POTASSIUM - SERUM 3.9 mmol/L (3.5-5.1)
[2017-09-11 07:58] VITALS: BP 100/46
[2017-09-11 11:31] VITALS: BP 82/42
[2017-09-11 15:39] VITALS: BP 100/44
[2017-09-11 21:03] VITALS: BP 131/47
[2017-09-12 01:52] VITALS: BP 97/55
[2017-09-12 04:42] LABS: BASOPHILS 0 % (0-2); EOSINOPHILS 0 % (0-7); HEMATOCRIT 32.6 % (42.0-54.0); HEMOGLOBIN 9.4 g/dL (13.5-17.5); IMMATURE GRANULOCYTES 0.1 % (0-5); LYMPHOCYTES 18.8 % (15-50); MCH 24.5 pg (26.0-34.0); MCHC 28.8 g/dL (31.0-37.0); MCV 85.1 fL (80.0-100.0); MONOCYTES 10.5 % (2-11); NEUTROPHILS 70.6 % (40-80); PLATELET COUNT 167 10x3/uL (130-400); RBC 3.83 10x6/uL (4.20-6.10); RDW 16.7 % (11.5-14.5); WBC 6.9 10x3/uL (4.8-10.8)
[2017-09-12 04:57] LABS: CALC OSMOLALITY 278 mosm/kg (275-300); CALCIUM 8.8 mg/dL (8.5-10.1); CARBON DIOXIDE 26.4 mmol/L (21.0-32.0); CHLORIDE - SERUM 108 mmol/L (98-107); CREATININE - SERUM 0.8 mg/dL (0.6-1.3); GLUCOSE 89 mg/dL (74-106); POTASSIUM - SERUM 4.1 mmol/L (3.5-5.1); SODIUM 139 mmol/L (136-145); UREA NITROGEN 19 mg/dL (7-18); eGFR NON AFRICAN AMERICAN > 90 mL/min (90-120)
[2017-09-12 05:37] VITALS: BP 107/53
[2017-09-12 09:01] VITALS: BP 129/54
[2017-09-12 13:03] VITALS: BP 107/49
[2017-09-12 17:15] VITALS: BP 112/52
[2017-09-12 18:12] LABS: HEMOGLOBIN 9.4 g/dL (13.5-17.5)
[2017-09-12 21:25] VITALS: BP 138/84
[2017-09-12 23:50] LABS: HEMATOCRIT 31.8 % (42.0-54.0); HEMOGLOBIN 9.3 g/dL (13.5-17.5)
[2017-09-13 00:35] VITALS: BP 106/67
[2017-09-13 05:41] VITALS: BP 104/53
[2017-09-13 06:29] LABS: BASOPHILS 0 % (0-2); EOSINOPHILS 0 % (0-7); HEMATOCRIT 32.2 % (42.0-54.0); HEMOGLOBIN 9.1 g/dL (13.5-17.5); IMMATURE GRANULOCYTES 0.1 % (0-5); LYMPHOCYTES 13.6 % (15-50); MCH 24.1 pg (26.0-34.0); MCHC 28.3 g/dL (31.0-37.0); MCV 85.4 fL (80.0-100.0); MEAN PLATELET VOLUME 9.4 fL (7.4-10.4); MONOCYTES 10.1 % (2-11); NEUTROPHILS 76.2 % (40-80); PLATELET COUNT 160 10x3/uL (130-400); RBC 3.77 10x6/uL (4.20-6.10); RDW 16.6 % (11.5-14.5); WBC 7.2 10x3/uL (4.8-10.8)
[2017-09-13 06:38] LABS: CALC OSMOLALITY 277 mosm/kg (275-300); CALCIUM 8.6 mg/dL (8.5-10.1); CHLORIDE - SERUM 108 mmol/L (98-107); CREATININE - SERUM 0.6 mg/dL (0.6-1.3); GLUCOSE 88 mg/dL (74-106); SODIUM 139 mmol/L (136-145); eGFR NON AFRICAN AMERICAN > 90 mL/min (90-120)
[2017-09-13 06:40] LABS: UREA NITROGEN 14 mg/dL (7-18)
[2017-09-13 08:39] VITALS: BP 132/60
[2017-09-13 11:41] LABS: HEMATOCRIT 33.4 % (42.0-54.0); HEMOGLOBIN 9.6 g/dL (13.5-17.5)
[2017-09-13 12:16] VITALS: BP 130/53
[2017-09-13 16:55] VITALS: BP 128/68
[2017-09-13 18:30] LABS: HEMATOCRIT 33.5 % (42.0-54.0); HEMOGLOBIN 9.4 g/dL (13.5-17.5)
[2017-09-13 19:00] VITALS: BP 122/58
[2017-10-07 08:19] LABS: FUNGUS MYCOLOGY CULTURE Final report (())
[2017-11-03 12:18] LABS: ACID FAST CULTURE Negative (()); ACID FAST SMEAR Negative (())
== END 2017-09-13 20:18 | DRG 242 ==
LOC: D.ER 19:07 → OBSVTIME 22:52 → D.MS 22:52 → D.EDHOLD 22:52 → D.MS 08-31 15:22 → D.M2 09-01 14:16 → D.MS 09-01 14:16 → D.M2 09-07 09:56
PROVIDERS: Family Medicine; Family Medicine Adult Medicine; Internal Medicine Cardiovascular Disease; Internal Medicine Nephrology; Internal Medicine Pulmonary Disease
PROC: 02HK3JZ Insertion of Pacemaker Lead into Right Ventricle, Percutaneous Approach (ICD-10-PCS; 2017-09-07)
PROC: 0JH604Z Insertion of Pacemaker, Single Chamber into Chest Subcutaneous Tissue and Fascia, Open Approach (ICD-10-PCS; principal; 2017-09-07 07:58)
PROC: 0W993ZZ Drainage of Right Pleural Cavity, Percutaneous Approach (ICD-10-PCS; 2017-09-09)
DX: I11.0 Hypertensive heart disease with heart failure (principal); J96.01 Acute respiratory failure with hypoxia; G93.41 Metabolic encephalopathy; R53.2 Functional quadriplegia; J69.0 Pneumonitis due to inhalation of food and vomit; E87.2 Acidosis; F05 Delirium due to known physiological condition; J98.11 Atelectasis; I50.33 Acute on chronic diastolic (congestive) heart failure; Z66 Do not resuscitate; K21.9 Gastro-esophageal reflux disease without esophagitis; E66.9 Obesity, unspecified; Z68.39 Body mass index [BMI] 39.0-39.9, adult; E78.5 Hyperlipidemia, unspecified; R13.10 Dysphagia, unspecified; I48.91 Unspecified atrial fibrillation; I49.5 Sick sinus syndrome; R00.1 Bradycardia, unspecified; D64.9 Anemia, unspecified; E87.6 Hypokalemia; N40.0 Benign prostatic hyperplasia without lower urinary tract symptoms; F03.90 Unspecified dementia, unspecified severity, without behavioral disturbance, psychotic disturbance, mood disturbance, and anxiety; I08.1 Rheumatic disorders of both mitral and tricuspid valves; I27.20 Pulmonary hypertension, unspecified; L89.152 Pressure ulcer of sacral region, stage 2